=== PATIENT | male | born 1980 | race Caucasian/White ===

== ENCOUNTER 2020-04-26 09:15 | Outpatient (CLI) | payer OTHER, SELFPAY ==
[2020-04-26 09:29] LABS: Basophils Absolute Auto 0.1 K/mm3 (0.0-0.1); Basophils Percent Auto 0.6 % (0.2-1.2); Eosinophils Absolute Auto 0.4 K/mm3 (0-0.3); Eosinophils Percent Auto 4.4 % (0-4.4); Hematocrit 44.5 % (42.0-52.0); Hemoglobin 15.6 g/dL (14.0-18.0); Immature Granulocyte Absolute 0.03 K/mm3 (0.00-0.031); Immature Granulocyte Percent A 0.3 % (0-0.5); Lymphocytes Absolute Auto 1.46 K/mm3 (0.9-3.2); Lymphocytes Percent Auto 16.9 % (18.3-44.2); Mean Corpuscular HGB Conc 35.1 g/dl (32-36); Mean Corpuscular Hemoglobin 35.6 pg (26-34); Mean Corpuscular Volume 101.6 fl (80-100); Mean Platelet Volume 9.4 fl (7.4-10.4); Monocytes Absolute Auto 0.9 K/mm3 (0.1-0.6); Monocytes Percent Auto 10.7 % (2.6-8.5); Neutrophils Absolute Auto 5.8 K/mm3 (1.3-6.7); Neutrophils Percent Auto 67.1 % (45.5-73.1); Platelet Count Result 159 k/mm3 (150-375); Red Blood Count 4.38 M/mm3 (4.6-6.20); Red Cell Distribution Width 11.3 % (11.5-14.5); White Blood Count 8.7 K/mm3 (4.5-10.0)
[2020-04-30 10:41] LABS: Vitamin D 1,25 (OH)2 Total 71 pg/mL (18-72); Vitamin D2 1,25 (OH)2 <8 pg/mL; Vitamin D3 1,25 (OH)2 71 pg/mL
== END 2020-04-26 09:16 | disposition home or self-care (01) ==
PROVIDERS: PCP Emergency Medicine; Visit Provider Emergency Medicine
DX: Z03.818 Encounter for observation for suspected exposure to other biological agents ruled out (principal); D55.9 Anemia due to enzyme disorder, unspecified; F41.9 Anxiety disorder, unspecified; F32.9 Major depressive disorder, single episode, unspecified; R06.9 Unspecified abnormalities of breathing
CPT/HCPCS: 36415; 82652; 84443; 85025

== ENCOUNTER 2021-12-23 07:16 | Outpatient (CLI) | payer OTHER, SELFPAY ==
[2021-12-23 07:51] LABS: Basophils Absolute Auto 0.1 K/mm3 (0.0-0.1); Basophils Percent Auto 1.1 % (0.2-1.2); Eosinophils Absolute Auto 0.1 K/mm3 (0-0.3); Eosinophils Percent Auto 1.3 % (0-4.4); Hematocrit 42.3 % (42.0-52.0); Hemoglobin 14.8 g/dL (14.0-18.0); Immature Granulocyte Absolute 0.02 K/mm3 (0.00-0.031); Immature Granulocyte Percent A 0.4 % (0-0.5); Lymphocytes Absolute Auto 1.32 K/mm3 (0.9-3.2); Mean Corpuscular Hemoglobin 35.8 pg (26-34); Mean Corpuscular Volume 102.4 fl (80-100); Mean Platelet Volume 10.5 fl (7.4-10.4); Monocytes Absolute Auto 0.8 K/mm3 (0.1-0.6); Monocytes Percent Auto 13.7 % (2.6-8.5); Neutrophils Absolute Auto 3.3 K/mm3 (1.3-6.7); Neutrophils Percent Auto 59.5 % (45.5-73.1); Platelet Count Result 66 k/mm3 (150-375); Red Blood Count 4.13 M/mm3 (4.6-6.20); Red Cell Distribution Width 11.7 % (11.5-14.5); White Blood Count 5.5 K/mm3 (4.5-10.0)
[2021-12-23 08:08] LABS: Alanine Aminotransferase 117 U/L (6-50); Albumin Level 4.7 g/dL (3.5-5.1); Alkaline Phosphatase 145 U/L (38-126); Anion Gap 12 mmol/L (8-16); Aspartate Amino Transferase 258 U/L (17-59); Bilirubin,Total 2.7 mg/dL (0.2-1.3); Blood Urea Nitrogen 13 mg/dL (9-20); CRP 0.7 mg/dL (<1.0); Calcium 10.2 mg/dL (8.4-10.2); Carbon Dioxide 31 mmol/L (22-30); Chloride 102 mmol/L (98-107); Creatine Kinase 169 U/L (55-170); Estimated Glomerular Filt Rate > 60; Glucose 95 mg/dL (65-110); Lipase 145 U/L (23-300); Potassium 3.6 mmol/L (3.4-5.0); Sodium 145 mmol/L (137-145); Triglycerides 109 mg/dL (<150)
[2021-12-23 08:12] LABS: LDL Cholesterol Direct 106 mg/dL
[2021-12-23 09:34] LABS: Cholesterol 358 mg/dL (0-200); HDL Direct 175 mg/dL
== END 2021-12-23 07:17 | disposition home or self-care (01) ==
LOC: ANHLAB 07:18
PROVIDERS: PCP Emergency Medicine; Visit Provider Emergency Medicine
DX: E78.5 Hyperlipidemia, unspecified (principal); R53.83 Other fatigue; R63.4 Abnormal weight loss; Z13.6 Encounter for screening for cardiovascular disorders
CPT/HCPCS: 36415; 80053; 80061; 82550; 83690; 84443; 85025; 85055; 86140

== ENCOUNTER 2021-12-26 20:19 | Inpatient (IN) | payer OTHER, SELFPAY ==
[2021-12-26] VITALS (9 sets, daily range): BP systolic 98–144; BP diastolic 69–104; PULSE 90–103; RESP 12–21; TEMP 36.1; O2SAT 94–97
--- NOTE | ~2021-12-26 | XR_ITS ---
EXAMINATION: XR chest 1V portable Exam Date/Time: 12/27/2021 20:42 CDT HISTORY: fever Comparison: None available. RESULT: Lines, tubes, and devices: None. Lungs and pleura: Clear. Cardiomediastinal silhouette: Normal cardiomediastinal silhouette. Other: No acute osseous or upper abdominal finding. IMPRESSION: No acute cardiopulmonary process. Reviewed, dictated and finalized at location K.
--- NOTE | ~2021-12-26 | CT_ITS ---
EXAMINATION: CT cervical spine wo con DATE: 12/26/2021 21:25 INDICATION: Head injury. Fall. TECHNIQUE: Computed tomography (CT) of the cervical spine was performed without intravenous contrast. Automated exposure control and iterative reconstruction technique were employed. The dose-length pro duct was 498.77 mGy-cm. COMPARISON: None FINDINGS: There is 5 degrees levocurvature of cervical spine.. Vertebral body heights and interverteb ral disc heights are normal. There is multilevel facet joint osteoarthritis, moderate on the right at C7-T1. No neural foraminal stenosis or central canal stenosis. IMPRESSION: 1. No fracture. Reviewed, dictated and finalized at location A. IMPRESSION: 1. No fracture.
--- NOTE | ~2021-12-26 | CT_ITS ---
EXAMINATION: CT brain wo con DATE: 12/26/2021 21:24 INDICATION: Loss of balance. Fall. Confusion. TECHNIQUE: Computed tomography (CT) of the head was performed without intravenous contrast. The mA wa s adjusted according to patient size. Iterative reconstruction technique was employed. The dose-lengt h product was 605.33 mGy-cm. COMPARISON: None FINDINGS: There is a 2.5 x 4.6 x 4.5 cm arachnoid cyst anterior to right temporal lobe. There is no i ntracranial hemorrhage, acute infarction, or abnormal intracranial mass lesion. The ventricles are no rmal in size. There is mild mucosal thickening in the paranasal sinuses. The mastoid air cells are no rmal. The orbits are normal. IMPRESSION: 1. Arachnoid cyst anterior to right temporal lobe. Reviewed, dictated and finalized at location A.
--- NOTE | ~2021-12-26 | US_ITS ---
EXAMINATION: US abdomen limited DATE: 12/27/2021 08:48 INDICATION: Abnormal liver function tests TECHNIQUE: Multiple grayscale and Doppler ultrasound images of the abdomen were obtained. COMPARISON: None FINDINGS: The pancreatic head and body are normal in appearance. The pancreatic tail is not visualized. The vi sualized proximal inferior vena cava is normal. Liver has normal contour, with a smooth surface. Ther e is increased parenchymal echogenicity and coarsened echotexture consistent with diffuse hepatic juan atosis. No liver lesion identified. No intrahepatic biliary duct dilation suspected. Portal venous f low was seen in the hepatopetal, normal direction and has normal Doppler waveform. The gallbladder is normal in appearance. There is no cholelithiasis. The common bile duct measures 2 mm and 3 mm, whic h is normal. Sonographic Granda sign was reported as negative by the laboratory scientist. The visualized port ions of the right kidney demonstrates normal contour and echogenicity with no hydronephrosis. IMPRESSION: 1. Diffuse hepatic steatosis. Otherwise unremarkable right upper quadrant ultrasound. Reviewed, dictated and finalized at location A. IMPRESSION: 1. Diffuse hepatic steatosis. Otherwise unremarkable right upper quadrant ultra sound.
[2021-12-26 20:52] LABS: Basophils Absolute Auto 0.1 K/mm3 (0.0-0.1); Basophils Percent Auto 1.3 % (0.2-1.2); Eosinophils Absolute Auto 0.1 K/mm3 (0-0.3); Hematocrit 42.6 % (42.0-52.0); Hemoglobin 14.6 g/dL (14.0-18.0); Immature Granulocyte Absolute 0.02 K/mm3 (0.00-0.031); Immature Granulocyte Percent A 0.3 % (0-0.5); Immature Platelet Fraction Pct 6.5 % (0.9-11.2); Lymphocytes Percent Auto 27.4 % (18.3-44.2); Mean Corpuscular HGB Conc 34.3 g/dl (32-36); Mean Corpuscular Hemoglobin 35.1 pg (26-34); Mean Corpuscular Volume 102.4 fl (80-100); Mean Platelet Volume 9.9 fl (7.4-10.4); Monocytes Absolute Auto 0.8 K/mm3 (0.1-0.6); Neutrophils Absolute Auto 3.5 K/mm3 (1.3-6.7); Platelet Count Result 76 k/mm3 (150-375); Red Blood Count 4.16 M/mm3 (4.6-6.20); Red Cell Distribution Width 11.9 % (11.5-14.5); White Blood Count 6.2 K/mm3 (4.5-10.0)
[2021-12-26 21:01] LABS: Alanine Aminotransferase 113 U/L (6-50); Albumin Level 4.6 g/dL (3.5-5.1); Alkaline Phosphatase 136 U/L (38-126); Anion Gap 15 mmol/L (8-16); Aspartate Amino Transferase 247 U/L (17-59); Blood Urea Nitrogen 9 mg/dL (9-20); Calcium 9.6 mg/dL (8.4-10.2); Carbon Dioxide 32 mmol/L (22-30); Chloride 103 mmol/L (98-107); Estimated CRCL calculation 139 ml/min; Estimated Glomerular Filt Rate > 60; Glucose 107 mg/dL (65-110); INR 1.2; Potassium 3.7 mmol/L (3.4-5.0); Prothrombin Time 14.6 Seconds (11.1-14.7); Sodium 150 mmol/L (137-145)
[2021-12-26 21:02] LABS: Partial Thromboplastin Time 30.3 SECONDS (22.3-36.8)
--- NOTE | 2021-12-26 21:10 | ED.GENADULT ---
HPI - General Adult General Chief complaint: Fall <TIFFANY Fowler Last Filed: 12/27/21 02:44> Stated complaint: altered mental status, fall, weight loss <TIFFANY Fowler Last Filed: 12/27/21 02:44> Time Seen by Provider: 12/26/21 20:45 <TIFFANY Fowler Last Filed: 12/27/21 02:44> Source: patient and family <TIFFANY Fowler Last Filed: 12/27/21 02:44> Mode of arrival: ambulatory <TIFFANY Fowler Last Filed: 12/27/21 02:44> Limitations: clinical condition <TIFFANY Fowler Last Filed: 12/27/21 02:44> History of Present Illness HPI narrative: Patient is a 41-year-old male who presents the ED with report of confusion. Patient's at bedside assisted in providing information. Patient states he does not know why he is here. reports an unintentional 70 pound weight loss over the past year. She states patient just does not have an appetite. Patient does admit that it is easy for him to go 3 to 4 days without eating or drinking anything. He states he just has no desire to put anything in his system. reports intermittent confusion for the past 6 months, worsening significantly over to a daily basis over the past 2 weeks. She states he has been saying off the wall things and asking questions that do not make sense for this scenario. Patient denies feeling confused. Denies any focal weakness. He does report having pain from his knees down occasionally. reports that he sometimes sits on the couch and cries due to the pain. also reports he has been falling frequently lately. He fell tonight. She is unsure if he hit his head or loss consciousness. Patient does not report remembering falling. He denies any headache, abdominal pain, back pain, chest pain, difficulty breathing, recent fever, chills, night sweats, nausea, vomiting, cough, cold sx's. <TIFFANY Fowler Last Filed: 12/27/21 02:44> Related Data Allergies/adverse reactions: Allergies Allergy/AdvReac Type Severity Reaction Status Date / Time No Known Allergies Allergy Verified 12/27/21 01:57 <Luzma Interiano PA-C - Last Filed: 12/27/21 02:44> Review of Systems Review of Systems: CONSTITUTIONAL: Reports weight loss, anorexia. Denies fever, chills, or sweats. EYES: Denies visual changes. ENT: Denies rhinorrhea, congestion. CARDIOVASCULAR: Denies chest pain. RESPIRATORY: Denies cough or dyspnea. GASTROINTESTINAL: Denies abdominal pain, nausea, vomiting, or diarrhea. GENITOURINARY: Denies dysuria or hematuria. MUSCULOSKELETAL: Reports pain in BLE. Denies back pain. NEUROLOGIC: Reports confusion, unsure HI/LOC. Denies headache, numbness, or focal weakness. <Luzma Interiano PA-C - Last Filed: 12/27/21 02:44> All systems reviewed & are unremarkable except as noted in HPI and below <Luzma Interiano PA-C - Last Filed: 12/27/21 02:44> PMFSH Past Medical History Medical History: Medical History Anxiety Depression <Luzma Interiano PA-C - Last Filed: 12/27/21 02:44> Surgical History Surgical History: Surgical History No pertinent past surgical history <Luzma Interiano PA-C - Last Filed: 12/27/21 02:44> Family History Family History: Family History Father Hypertension <Luzma Interiano PA-C - Last Filed: 12/27/21 02:44> Social History Social History: Social History Smoking status: Never smoker Alcohol intake: current Drinks per week: 6 Substance use: never Spiritual care concerns: No <Luzma Interiano PA-C - Last Filed: 12/27/21 02:44> Exam Narrative: GENERAL: Well appearing, well-nourished, non-toxic, in no acute distress. HEAD: Normocephalic, atraumatic. EYES: PERRL/EOMI, conjunctivae clear bilaterally.
[2021-12-26 21:57] LABS: Add Urine Microscopic? NO; Appearance Urine Clear (Clear); Bilirubin Urine Negative (Negative); Blood Urine Negative (Negative); Color Urine Yellow (Yellow); Glucose Urine UA Negative (Negative); Ketones Urine Negative (Negative); Leukocyte Esterase Ur Negative LEU/UL (Negative); Nitrate Urine Negative (Negative); Protein Urine Negative (Negative)
[2021-12-26 22:53] LABS: Ammonia 65 umol/L (9-30)
[2021-12-26 23:03] LABS: Ethanol 494 mg/dL (<10)
[2021-12-26 23:05] LABS: Amphetamine Screen Urine Negative (Negative); Barbiturate Screen Urine Negative (Negative); Benzodiazepines Screen Urine Negative (Negative); Cannabinoid Screen Urine Negative (Negative); Cocaine Screen Urine Negative (Negative); Methadone Screen Urine Negative (Negative); Opiate Screen Urine Negative (Negative); Phencyclidine Screen Urine Negative (Negative)
[2021-12-26] MEDS: SODIUM CHLORIDE 0.9% IV 1,000 ML 999 ML IV CONT (23:31)
[2021-12-26 23:32] LABS: INR 1.2
[2021-12-26 23:33] LABS: Partial Thromboplastin Time 30.7 SECONDS (22.3-36.8)
[2021-12-26 23:35] LABS: Lactic Acid Reflex 1.6 mmol/L (0.7-2.0); Magnesium 1.4 mg/dL (1.6-2.3); Phosphorus 4.1 mg/dL (2.5-4.5)
[2021-12-26 23:58] LABS: Lipase 211 U/L (23-300)
[2021-12-27] VITALS (13 sets, daily range): BP systolic 120–153; BP diastolic 82–93; PULSE 69–94; RESP 15–18; TEMP 36.9–38.1; O2SAT 90–100; BMI 25.9
[2021-12-27] MEDS: THIAMINE HCL INJ 100 MG, FOLIC ACID INJ 1 MG, MULTIVITAMINS-12 INJ VIAL 1 5 ML, MULTIVI... IV CONT (00:01)
--- NOTE | 2021-12-27 01:08 | PM.IMHP ---
H&P: HPI History of Present Illness Date/Time: 12/27/21 01:08 Chief Complaint: Altered mental status. Narrative: This is a 41-year-old male the presents to the emergency room for evaluation of worsening confusion, unintentional weight loss, poor appetite, recurrent fall. Patient is brought to the emergency room by his he is able to give a history however patient is confused he is oriented to person and place however not to situation or time. When asked what time it was patient stated was morning. Upon further investigation was found the patient had an alcohol level in the 400s, ammonia level of 65, sodium 150, magnesium 1.4, MCV 112. Patient denies any discomfort at the time of my visit. is eating history taking. And she is sitting at bedside. Patient denies any fevers, rigors, chills, although states that he is feeling cold, no cough, no sputum production, no shortness of breath, no chest pain, patient has not been able to sleep at nighttime. Patient has been admitted for further evaluation management and treatment. Review of Systems Review of Systems: Patient brought to emergency room by due to confusion, recurrent falls, poor appetite. ROS unobtainable: Yes unobtainable due to mental status (Delirium, confusion.) [facility] Past Medical History Medical History Anxiety Depression Surgical History Surgical History No pertinent past surgical history Family History Family History Father Hypertension Social History Social History Smoking status: Never smoker Alcohol intake: current Drinks per week: 6 Substance use: never Spiritual care concerns: No Meds Home Medications and Allergies Allergies Allergy/AdvReac Type Severity Reaction Status Date / Time No Known Allergies Allergy Verified 12/27/21 01:57 Vital Signs Vital Signs - 24 hr 12/26/21 20:26 12/26/21 21:12 12/26/21 21:13 Temperature 97.0 F L Pulse Rate 92 100 103 H Respiratory Rate 14 16 16 Blood Pressure 139/90 144/104 H 140/101 H Pulse Oximetry 97 97 97 05/20/22 21:28 12/26/21 21:31 12/26/21 22:16 Temperature Pulse Rate 92 93 95 Respiratory Rate 12 21 H 13 Blood Pressure 136/92 H 129/88 124/102 H Pulse Oximetry 94 95 94 12/26/21 22:31 12/26/21 22:46 12/26/21 23:31 Temperature Pulse Rate 90 96 98 Respiratory Rate 15 15 18 Blood Pressure 120/87 98/69 L 126/95 H Pulse Oximetry 94 94 95 12/27/21 00:01 Temperature Pulse Rate 86 Respiratory Rate 18 Blood Pressure 127/85 Pulse Oximetry 90 Exam Narrative: Laying in a stretcher Const: General: cooperative, comfortable, no acute distress, well developed, alert, awake and other (Well-appearing) Nutritional Appearance: thin Orientation/consciousness: oriented to person and oriented to place HENMT: Head: normal to inspection, normocephalic and atraumatic Ears: hearing grossly normal bilaterally Face and sinus: normal facial exam Eyes: General: appearance normal, both eyes and all related structures Pupils: Equal, round and reactive pupils present EOM: EOMs intact bilaterally Neck: Neck: full ROM, no lymphadenopathy and no JVD Thyroid: thyroid normal Lymphatic: no lymphadenopathy noted Resp: Effort & Inspection: normal respiratory effort and able to speak in complete sentences Auscultation: clear to auscultation bilaterally Cardio: Jugular venous distension: no JVD Rate: regular rate Rhythm: regular rhythm Heart sounds: S1 normal heart sound present and S2 normal heart sound present GI: GI Palp: Yes Soft to palpation and Yes No hepatosplenomegaly present : General: Yes deferred Skin: Rashes: no rashes Wounds: no wounds Neuro: General: patient oriented x3 and CN's II-XI intact bilaterally Cranial nerves: Yes CN's II-
--- NOTE | 2021-12-27 01:56 | ADMGEN ---
This patient, Martin Early, was admitted to Medical Room 347-. Patient/family oriented to hospital policies and general routines including ID bracelet, bed and alarms, visiting hours, pain management, procedures, bathroom and other care routines, personal items, smoking policy, room service/diet, and visiting hours. Information on how to activate the Rapid Response Team has been discussed. Patient/Family are encouraged to report perceived risks to care and to ask questions if they do not understand what they are told or what they should do.
--- NOTE | 2021-12-27 02:22 | PC.NURSE ---
Pt brought to room from ED with multivitamin drip infusing @ 100 ml/hr.
[2021-12-27 05:58] LABS: Basophils Absolute Auto 0.1 K/mm3 (0.0-0.1); Basophils Percent Auto 1.3 % (0.2-1.2); Eosinophils Percent Auto 0.8 % (0-4.4); Hematocrit 36.8 % (42.0-52.0); Hemoglobin 12.6 g/dL (14.0-18.0); Immature Granulocyte Absolute 0.02 K/mm3 (0.00-0.031); Immature Granulocyte Percent A 0.5 % (0-0.5); Immature Platelet Fraction Pct 5.7 % (0.9-11.2); Lymphocytes Absolute Auto 0.83 K/mm3 (0.9-3.2); Lymphocytes Percent Auto 22.3 % (18.3-44.2); Mean Corpuscular HGB Conc 34.2 g/dl (32-36); Mean Corpuscular Hemoglobin 35.4 pg (26-34); Mean Corpuscular Volume 103.4 fl (80-100); Mean Platelet Volume 10.3 fl (7.4-10.4); Monocytes Absolute Auto 0.5 K/mm3 (0.1-0.6); Monocytes Percent Auto 13.4 % (2.6-8.5); Neutrophils Absolute Auto 2.3 K/mm3 (1.3-6.7); Neutrophils Percent Auto 61.7 % (45.5-73.1); Platelet Count Result 44 k/mm3 (150-375); Red Blood Count 3.56 M/mm3 (4.6-6.20); Red Cell Distribution Width 11.7 % (11.5-14.5); White Blood Count 3.7 K/mm3 (4.5-10.0)
[2021-12-27 06:01] LABS: Alanine Aminotransferase 91 U/L (6-50); Albumin Level 3.9 g/dL (3.5-5.1); Alkaline Phosphatase 110 U/L (38-126); Anion Gap 9 mmol/L (8-16); Aspartate Amino Transferase 203 U/L (17-59); Bilirubin,Total 1.9 mg/dL (0.2-1.3); Blood Urea Nitrogen 7 mg/dL (9-20); Calcium 8.4 mg/dL (8.4-10.2); Carbon Dioxide 30 mmol/L (22-30); Chloride 109 mmol/L (98-107); Estimated CRCL calculation 160 ml/min; Estimated Glomerular Filt Rate > 60; Glucose 97 mg/dL (65-110); Magnesium 1.4 mg/dL (1.6-2.3); Phosphorus 3.5 mg/dL (2.5-4.5); Potassium 3.4 mmol/L (3.4-5.0); Sodium 148 mmol/L (137-145)
[2021-12-27] MEDS: MAGNESIUM SULF 2 GM/WATER 50ML 2 GM/50 ML BAG IVPB (09:30)
[2021-12-27] MEDS: LACTULOSE 20 GM/30 ML UDC PO (09:30)
--- NOTE | 2021-12-27 13:51 | PM.IMPN ---
Progress Note: A&P Assessment and Plan (1) Altered mental status: Qualifiers: Altered mental status type: unspecified Qualified Code(s): R41.82 - Altered mental status, unspecified Code(s): R41.82 - Altered mental status, unspecified Status: Acute Assessment and Plan: Likely secondary to acute alcohol intoxication level in the 400 Contributing to it a sodium of 150 CT of the head reviewed with arachnoid cyst anterior to right temporal lobe Continue to monitor Continue IV fluids Supportive care Likely due to alcohol intoxication and/or hepatic encephalopathy (2) Increased ammonia level: Code(s): R79.89 - Other specified abnormal findings of blood chemistry Status: Acute Assessment and Plan: Lactulose Continue to monitor Recheck in a.m. (3) Alcohol dependence with acute intoxication, continuous: Code(s): F10.229 - Alcohol dependence with intoxication, unspecified Status: Acute Assessment and Plan: [facility] protocol as needed Supportive care (4) Fall: Code(s): W19.XXXA - Unspecified fall, initial encounter Status: Acute Assessment and Plan: For precautions CT head and neck negative for fractures Has hematoma/bruising on left forearm (5) Hypernatremia: Code(s): E87.0 - Hyperosmolality and hypernatremia Status: Acute Assessment and Plan: Receiving banana bag Repeat sodium improving Continue to monitor Likely secondary to patient not drinking free water and on top of that having diuresis due to alcohol consumption (6) Acute alcoholic hepatitis: Code(s): K70.10 - Alcoholic hepatitis without ascites Status: Acute Assessment and Plan: Right upper quadrant ultrasound With hepatic steatosis Check hepatitis profile (7) Megaloblastic anemia due to alcoholism: Code(s): D53.1 - Other megaloblastic anemias, not elsewhere classified Status: Acute Assessment and Plan: Continue to monitor (8) Weight loss, non-intentional: Code(s): R63.4 - Abnormal weight loss Status: Acute Assessment and Plan: Poor oral intake Regular diet (9) Thrombocytopenia, unspecified: Code(s): D69.6 - Thrombocytopenia, unspecified Status: Acute Assessment and Plan: Likely secondary to hepatic steatosis and alcohol consumption Continue to monitor Is scheduled to see Dr. Mcbride this well (10) Alcoholic dependence syndrome: Code(s): F10.20 - Alcohol dependence, uncomplicated Status: Acute Assessment and Plan: [facility] (11) Alcohol withdrawal: Code(s): F10.239 - Alcohol dependence with withdrawal, unspecified Status: Acute Assessment and Plan: He is on mild alcohol withdrawal symptoms. Will start scheduled Librium and CIWA protocol Subjective Date/time seen: 12/27/21 13:51 Interval history: HPI:This is a 41-year-old male the presents to the emergency room for evaluation of worsening confusion, unintentional weight loss, poor appetite, recurrent fall. Patient is brought to the emergency room by his he is able to give a history however patient is confused he is oriented to person and place however not to situation or time. When asked what time it was patient stated was morning. Upon further investigation was found the patient had an alcohol level in the 400s, ammonia level of 65, sodium 150, magnesium 1.4, MCV 112. Patient denies any discomfort at the time of my visit. is eating history taking. And she is sitting at bedside. Patient denies any fevers, rigors, chills, although states that he is feeling cold, no cough, no sputum production, no shortness of breath, no chest pain, patient has not been able to sleep at nighttime. Patient has been admitted for further evaluation management and treatment. 12/27/2021 improvement a marion today. at bedside
[2021-12-27 14:50] LABS: Acetaminophen < 10 ug/mL (10-30); Salicylate < 1.0 mg/dL (2-20)
[2021-12-27 15:22] LABS: Hepatitis B Surface Antigen Negative (Negative)
[2021-12-27 15:28] LABS: HAV RESULT Negative (Negative); Hepatitis B Core IgM Result Negative (Negative)
[2021-12-27 15:34] LABS: HIV 1/2 Ab P24 Ag Result Negative (Negative)
[2021-12-27 15:40] LABS: Hepatitis C Virus Antibody Negative (Negative)
[2021-12-27] MEDS: chlordiazePOXIDE (*CRX) 25 MG CAPSULE PO ×2 (16:51→21:03)
[2021-12-27] MEDS: LORazepam INJ (*CRX) 2 MG/ML VIAL 1 MG IV PUSH ×2 (18:04→22:17)
[2021-12-27 21:32] LABS: CRP 0.5 mg/dL (<1.0)
[2021-12-27 22:32] LABS: Appearance Urine Clear (Clear); Bilirubin Urine 1+ (Negative); Color Urine Yellow (Yellow); Glucose Urine UA Negative (Negative); Ketones Urine Trace mg/dL (Negative); Leukocyte Esterase Ur Negative LEU/UL (Negative); Nitrate Urine Negative (Negative); Protein Urine Negative (Negative); Specific Grav Ur 1.015 (1.001-1.035); Urobilinogen Urine >=8.0 mg/dL (<2.0); pH Urine 8.5 (5.0-9.0)
[2021-12-27 22:36] LABS: Bacteria Urine Trace /hpf; Mucus Urine Rare /lpf; Squamous Epithelial Cell Urine Rare /hpf (Few); WBC Urine 0-3 /hpf
[2021-12-27 22:53] LABS: Add Urine Microscopic? YES; Blood Urine Trace (Negative)
[2021-12-28] VITALS (8 sets, daily range): BP systolic 133–149; BP diastolic 87–98; PULSE 59–99; RESP 16–18; TEMP 36.6–37.2; O2SAT 99–100
[2021-12-28] MEDS: chlordiazePOXIDE (*CRX) 25 MG CAPSULE PO ×3 (05:28→21:11)
[2021-12-28 06:15] LABS: Basophils Percent Auto 0.9 % (0.2-1.2); Eosinophils Percent Auto 0.7 % (0-4.4); Hematocrit 37.2 % (42.0-52.0); Hemoglobin 12.8 g/dL (14.0-18.0); Immature Granulocyte Absolute 0.03 K/mm3 (0.00-0.031); Immature Granulocyte Percent A 0.7 % (0-0.5); Immature Platelet Fraction Pct 7.9 % (0.9-11.2); Lymphocytes Absolute Auto 0.66 K/mm3 (0.9-3.2); Lymphocytes Percent Auto 15.5 % (18.3-44.2); Mean Corpuscular HGB Conc 34.4 g/dl (32-36); Mean Corpuscular Hemoglobin 35.5 pg (26-34); Mean Platelet Volume 10.5 fl (7.4-10.4); Monocytes Absolute Auto 0.7 K/mm3 (0.1-0.6); Monocytes Percent Auto 15.3 % (2.6-8.5); Neutrophils Absolute Auto 2.8 K/mm3 (1.3-6.7); Neutrophils Percent Auto 66.9 % (45.5-73.1); Platelet Count Result 41 k/mm3 (150-375); Red Blood Count 3.61 M/mm3 (4.6-6.20); Red Cell Distribution Width 11.4 % (11.5-14.5); White Blood Count 4.3 K/mm3 (4.5-10.0)
[2021-12-28 06:18] LABS: Ammonia 18 umol/L (9-30)
[2021-12-28 06:19] LABS: Alanine Aminotransferase 84 U/L (6-50); Albumin Level 4.2 g/dL (3.5-5.1); Alkaline Phosphatase 122 U/L (38-126); Anion Gap 7 mmol/L (8-16); Aspartate Amino Transferase 184 U/L (17-59); Bilirubin,Total 3.5 mg/dL (0.2-1.3); Blood Urea Nitrogen 9 mg/dL (9-20); Calcium 8.3 mg/dL (8.4-10.2); Carbon Dioxide 27 mmol/L (22-30); Chloride 99 mmol/L (98-107); Estimated CRCL calculation 189 ml/min; Estimated Glomerular Filt Rate > 60; Glucose 83 mg/dL (65-110); Potassium 3.3 mmol/L (3.4-5.0); Sodium 133 mmol/L (137-145)
[2021-12-28] MEDS: POTASSIUM CHLORIDE 20 MEQ TABLET 40 MEQ PO (09:12)
[2021-12-28] MEDS: LACTULOSE 20 GM/30 ML UDC PO (09:12)
[2021-12-28] MEDS: LORazepam INJ (*CRX) 2 MG/ML VIAL 1 MG IV PUSH ×3 (12:19→22:39)
--- NOTE | 2021-12-28 13:10 | PM.IMPN ---
Progress Note: A&P Assessment and Plan (1) Altered mental status: Qualifiers: Altered mental status type: unspecified Qualified Code(s): R41.82 - Altered mental status, unspecified Code(s): R41.82 - Altered mental status, unspecified Status: Acute Assessment and Plan: Likely secondary to acute alcohol intoxication level in the 400 Contributing to it a sodium of 150 CT of the head reviewed with arachnoid cyst anterior to right temporal lobe Continue to monitor Continue IV fluids Supportive care Likely due to alcohol intoxication and/or hepatic encephalopathy Ammonia level has normalized 12/28/21 (2) Increased ammonia level: Code(s): R79.89 - Other specified abnormal findings of blood chemistry Status: Acute Assessment and Plan: Lactulose Continue to monitor Recheck normal 12/28/2021 (3) Alcohol dependence with acute intoxication, continuous: Code(s): F10.229 - Alcohol dependence with intoxication, unspecified Status: Acute Assessment and Plan: [facility] protocol as needed Supportive care (4) Fall: Code(s): W19.XXXA - Unspecified fall, initial encounter Status: Acute Assessment and Plan: For precautions CT head and neck negative for fractures Has hematoma/bruising on left forearm (5) Hypernatremia: Code(s): E87.0 - Hyperosmolality and hypernatremia Status: Acute Assessment and Plan: Receiving banana bag Repeat sodium improving Continue to monitor Likely secondary to patient not drinking free water and on top of that having diuresis due to alcohol consumption (6) Acute alcoholic hepatitis: Code(s): K70.10 - Alcoholic hepatitis without ascites Status: Acute Assessment and Plan: Right upper quadrant ultrasound With hepatic steatosis Hepatitis profile negative (7) Megaloblastic anemia due to alcoholism: Code(s): D53.1 - Other megaloblastic anemias, not elsewhere classified Status: Acute Assessment and Plan: Continue to monitor (8) Weight loss, non-intentional: Code(s): R63.4 - Abnormal weight loss Status: Acute Assessment and Plan: Poor oral intake Regular diet (9) Thrombocytopenia, unspecified: Code(s): D69.6 - Thrombocytopenia, unspecified Status: Acute Assessment and Plan: Likely secondary to hepatic steatosis and alcohol consumption Continue to monitor Is scheduled to see Dr. Mcbride this well (10) Alcoholic dependence syndrome: Code(s): F10.20 - Alcohol dependence, uncomplicated Status: Acute Assessment and Plan: D[facility]ed [facility] (11) Alcohol withdrawal: Code(s): F10.239 - Alcohol dependence with withdrawal, unspecified Status: Acute Assessment and Plan: He is on mild alcohol withdrawal symptoms. Scheduled Librium and CIWA protocol. Still in withdrawal continue current medication and protocol Subjective Date/time seen: 12/28/21 13:10 Interval history: HPI:This is a 41-year-old male the presents to the emergency room for evaluation of worsening confusion, unintentional weight loss, poor appetite, recurrent fall. Patient is brought to the emergency room by his he is able to give a history however patient is confused he is oriented to person and place however not to situation or time. When asked what time it was patient stated was morning. Upon further investigation was found the patient had an alcohol level in the 400s, ammonia level of 65, sodium 150, magnesium 1.4, MCV 112. Patient denies any discomfort at the time of my visit. is eating history taking. And she is sitting at bedside. Patient denies any fevers, rigors, chills, although states that he is feeling cold, no cough, no sputum production, no shortness of breath, no chest pain, patient has not been able to sleep at nighttime. Patient has been admitted
--- NOTE | 2021-12-28 13:14 | WPDGICN ---
Assessment and Plan Assessment and plan (1) Alcohol withdrawal: Code(s): F10.239 - Alcohol dependence with withdrawal, unspecified Status: Acute Assessment and Plan: he was alert today and shows no signs of tremulousness. I think he is going to be stable. He firmly states that he is going to give up alcohol completely. I (2) Alcoholic dependence syndrome: Code(s): F10.20 - Alcohol dependence, uncomplicated Status: Acute Assessment and Plan: he states that he is going to give up alcohol completely. I did tell him that it is usually not possible to is simply cut back on alcohol when 1 has had a problem with dependency. He acknowledges that he needs to stop completely (3) Increased ammonia level: Code(s): R79.89 - Other specified abnormal findings of blood chemistry Status: Acute Assessment and Plan: Ammonia level has come down to 15. I do not think that he will need to be maintained on lactulose after discharge so long as he remains sober he will however need to follow-up with either myself or liver specialist (4) Altered mental status: Qualifiers: Altered mental status type: unspecified Qualified Code(s): R41.82 - Altered mental status, unspecified Code(s): R41.82 - Altered mental status, unspecified Status: Acute Assessment and Plan: this was likely due to alcohol intoxication but the elevated blood ammonia may have been contributing factor as well. He is lucid now and probably able to go home GI Consult Note Consult date/time: 12/28/21 13:14 HPI: Martin Early is a 41 year old male who was admitted 2 days ago, having been brought to the emergency room by his . He had been falling. At the time of admission he also was confused and thought it was morning when in fact was evening. Was found to have an alcohol level in the 400s. Blood ammonia level also was elevated 65. He admits to me that he has been drinking heavily. He states that that is how he deals with stress at work. He admits he probably has not been eating well in fact has had a poor appetite recently. He also has been losing some weight. He has never been told in the past that he had liver disease. He has never been hospitalized for alcohol-related problems such as withdrawal syndrome. There is no family history to his knowledge of liver disease. Review of Systems Review of Systems: All systems reviewed & are unremarkable except as noted in HPI and below PMFSH Past Medical History Medical History Anxiety Depression Surgical History Surgical History No pertinent past surgical history Family History Family History Father Hypertension Social History Social History Smoking status: Never smoker Alcohol intake: current Drinks per week: 6 Substance use: never Spiritual care concerns: No Meds Home Medications and Allergies Home Medications Medication Instructions Recorded Confirmed Type No Home Medications 12/27/21 12/27/21 History Allergies Allergy/AdvReac Type Severity Reaction Status Date / Time No Known Allergies Allergy Verified 12/27/21 01:57 Vital Signs Vital Signs - 24 hr 12/27/21 16:00 12/27/21 16:24 12/27/21 20:00 Temperature 37.1 C Pulse Rate 69 77 81 Pulse Rate [Left Radial Palpation] 74 Respiratory Rate 16 Blood Pressure 148/93 H Pulse Oximetry 100 12/27/21 20:05 12/27/21 22:22 12/28/21 00:00 Temperature 38.1 C H 37.4 C Pulse Rate 78 65 Pulse Rate [Left Radial Palpation] 65 Respiratory Rate 16 Blood Pressure 153/92 H Pulse Oximetry 98 12/28/21 04:00 12/28/21 05:26 12/28/21 08:00 Temperature 36.6 C Pulse Rate 59 L 60 92 Pulse Rate [Left Radial Palpation] 6
[2021-12-29] VITALS (29 sets, daily range): BP systolic 112–151; BP diastolic 87–114; PULSE 60–160; RESP 13–22; TEMP 36.1–37.5; O2SAT 94–100; BMI 25.9
[2021-12-29] MEDS: LORazepam INJ (*CRX) 2 MG/ML VIAL 1 MG IV PUSH (02:27)
--- NOTE | 2021-12-29 02:52 | PC.NURSE ---
0250 PT WILL NOT KEEP ASSOCIATE ACCOUNTANT ON. REPLACED ASSOCIATE ACCOUNTANT AND STICKERS MULTIPLE TIMES. PT IS RESTLESS AND PACING AROUND THE ROOM. CONTACTED DR GAUTHIER SHE STATED IT WAS FINE TO LEAVE MONIOTR OFF FOR NOW AND TO SPOT CHECK THE PT THE NIGHT GOES ON. I TOLD HER I WOULD REPLACE THE MONITOR AT 4AM TO GET A STRIP ON THE PT SHE WAS AGREEABLE .
--- NOTE | 2021-12-29 03:29 | PC.NURSE ---
WHILE ROUNDING I VIEWED PT THROUGH WINDOW ON THE FLOOR LOOKING INTO THE CABINET. REQUESTED ASSISTANCE OF FELLOW CLAUDIA HOLT TO ENTER THE ROOM. PT WAS STARTLED AND STATED HE WAS TRYING TO FIX SOMETHING IN THE CABINET. PT WAS DRENCHED WITH SWEAT AND UNSTEADY RISING FROM THE FLOOR. 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 PT WAS COOPERATIVE BUT CONFUSED. PT WAS ABLE TO ANSWER BASIC QUESTIONS LIKE WHERE HE WORKED BUT THEN STATED HIS MOTHER IN THE CABINET. PT IS ACTIVELY HALLUCINATING AND BECOMING INCREASINGLY RESTLESS. INFORMED THE PT THE IMPORTANCE TO STAYING IN THE BED DUE TO HIS UNSTEADY GAIT AND SET THE BED ALARM TO ZONE 1. PREVIOUSLY PT HAD BEEN ALLOWED TO MOVE INDEPENDENTLY THROUGHOUT THE ROOM. ANDREW CURRENTLY A 32.
[2021-12-29] MEDS: LORazepam INJ (*CRX) 2 MG/ML VIAL IV PUSH ×3 (04:43→09:44)
[2021-12-29] MEDS: HALOPERIDOL LACTATE 5 MG/ML VIAL IM (05:08)
[2021-12-29] MEDS: chlordiazePOXIDE (*CRX) 25 MG CAPSULE PO ×2 (05:47→08:06)
[2021-12-29 06:41] LABS: Basophils Percent Auto 0.5 % (0.2-1.2); Eosinophils Percent Auto 0.2 % (0-4.4); Hematocrit 38.8 % (42.0-52.0); Hemoglobin 13.5 g/dL (14.0-18.0); Immature Granulocyte Absolute 0.02 K/mm3 (0.00-0.031); Immature Granulocyte Percent A 0.3 % (0-0.5); Immature Platelet Fraction Pct 9.6 % (0.9-11.2); Lymphocytes Absolute Auto 0.62 K/mm3 (0.9-3.2); Lymphocytes Percent Auto 10.3 % (18.3-44.2); Mean Corpuscular HGB Conc 34.8 g/dl (32-36); Mean Corpuscular Hemoglobin 35.4 pg (26-34); Mean Corpuscular Volume 101.8 fl (80-100); Mean Platelet Volume 10.5 fl (7.4-10.4); Monocytes Absolute Auto 0.7 K/mm3 (0.1-0.6); Monocytes Percent Auto 11.8 % (2.6-8.5); Neutrophils Absolute Auto 4.6 K/mm3 (1.3-6.7); Neutrophils Percent Auto 76.9 % (45.5-73.1); Platelet Count Result 57 k/mm3 (150-375); Red Blood Count 3.81 M/mm3 (4.6-6.20); Red Cell Distribution Width 11.6 % (11.5-14.5)
[2021-12-29 06:52] LABS: Alanine Aminotransferase 85 U/L (6-50); Albumin Level 4.4 g/dL (3.5-5.1); Alkaline Phosphatase 148 U/L (38-126); Anion Gap 10 mmol/L (8-16); Aspartate Amino Transferase 162 U/L (17-59); Bilirubin,Total 3.8 mg/dL (0.2-1.3); Blood Urea Nitrogen 10 mg/dL (9-20); Calcium 8.8 mg/dL (8.4-10.2); Carbon Dioxide 25 mmol/L (22-30); Chloride 98 mmol/L (98-107); Estimated CRCL calculation 139 ml/min; Estimated Glomerular Filt Rate > 60; Glucose 101 mg/dL (65-110); Magnesium 1.2 mg/dL (1.6-2.3); Potassium 3.3 mmol/L (3.4-5.0); Sodium 133 mmol/L (137-145)
--- NOTE | 2021-12-29 09:10 | PM.IMPN ---
Progress Note: A&P Assessment and Plan (1) Altered mental status: Qualifiers: Altered mental status type: unspecified Qualified Code(s): R41.82 - Altered mental status, unspecified Code(s): R41.82 - Altered mental status, unspecified Status: Acute Assessment and Plan: Likely secondary to acute alcohol intoxication level in the 400 Contributing to it a sodium of 150 CT of the head reviewed with arachnoid cyst anterior to right temporal lobe Continue to monitor Continue IV fluids Supportive care Likely due to alcohol intoxication and/or hepatic encephalopathy Ammonia level has normalized 12/28/21 Worsened 12/29/2021 with alcoholic hallucinosis Discussed with ICU. Transferred to ICU for further treatment with Precedex drip (2) Increased ammonia level: Code(s): R79.89 - Other specified abnormal findings of blood chemistry Status: Acute Assessment and Plan: Lactulose Continue to monitor Recheck normal 12/28/2021 (3) Alcohol dependence with acute intoxication, continuous: Code(s): F10.229 - Alcohol dependence with intoxication, unspecified Status: Acute Assessment and Plan: [facility] protocol as needed Supportive care (4) Fall: Code(s): W19.XXXA - Unspecified fall, initial encounter Status: Acute Assessment and Plan: For precautions CT head and neck negative for fractures Has hematoma/bruising on left forearm (5) Hypernatremia: Code(s): E87.0 - Hyperosmolality and hypernatremia Status: Acute Assessment and Plan: Receiving banana bag Repeat sodium improving Continue to monitor Likely secondary to patient not drinking free water and on top of that having diuresis due to alcohol consumption (6) Acute alcoholic hepatitis: Code(s): K70.10 - Alcoholic hepatitis without ascites Status: Acute Assessment and Plan: Right upper quadrant ultrasound With hepatic steatosis Hepatitis profile negative (7) Megaloblastic anemia due to alcoholism: Code(s): D53.1 - Other megaloblastic anemias, not elsewhere classified Status: Acute Assessment and Plan: Continue to monitor (8) Weight loss, non-intentional: Code(s): R63.4 - Abnormal weight loss Status: Acute Assessment and Plan: Poor oral intake Regular diet (9) Thrombocytopenia, unspecified: Code(s): D69.6 - Thrombocytopenia, unspecified Status: Acute Assessment and Plan: Likely secondary to hepatic steatosis and alcohol consumption Continue to monitor Is scheduled to see Dr. Mcbride this well (10) Alcoholic dependence syndrome: Code(s): F10.20 - Alcohol dependence, uncomplicated Status: Acute Assessment and Plan: Discuss[facility] (11) Alcohol withdrawal: Code(s): F10.239 - Alcohol dependence with withdrawal, unspecified Status: Acute Assessment and Plan: on severe alcohol withdrawal with hallucinosis. transferred to ICU Subjective Date/time seen: 12/29/21 09:10 Interval history: HPI:This is a 41-year-old male the presents to the emergency room for evaluation of worsening confusion, unintentional weight loss, poor appetite, recurrent fall. Patient is brought to the emergency room by his he is able to give a history however patient is confused he is oriented to person and place however not to situation or time. When asked what time it was patient stated was morning. Upon further investigation was found the patient had an alcohol level in the 400s, ammonia level of 65, sodium 150, magnesium 1.4, MCV 112. Patient denies any discomfort at the time of my visit. is eating history taking. And she is sitting at bedside. Patient denies any fevers, rigors, chills, although states that he is feeling cold, no cough, no sputum production, no shortness of breath, no chest pain, patient has not be
--- NOTE | 2021-12-29 09:19 | PC.NURSE ---
Pt arrived to ICU 10 via bed. at bedside.
[2021-12-29] MEDS: dexmedeTOMIDine 400 MCG/100 ML 400 MCG/100 ML BAG 22.98 MCG IV CONT (09:37)
[2021-12-29] MEDS: MAGNESIUM SULF 2 GM/WATER 50ML 2 GM/50 ML BAG IVPB (09:38)
[2021-12-29] MEDS: LACTULOSE 20 GM/30 ML UDC PO (09:38)
[2021-12-29] MEDS: POTASSIUM CHLORIDE INJ 40 MEQ in SODIUM CHLORIDE 0.9% IV 500 ML 130 MEQ IVPB (10:11)
--- NOTE | 2021-12-29 10:43 | PCPTNOTE ---
Attempted physical therapy evaluation, Per RN, patient is resting comfortably at this time and to check back this afternoon. Will Follow.
--- NOTE | 2021-12-29 10:50 | PCOTNOTE ---
Attempted occupational therapy evaluation, Per RN, patient is resting comfortably at this time and to check back this afternoon. Will Follow.
[2021-12-29] MEDS: chlordiazePOXIDE (*CRX) 25 MG CAPSULE 50 MG PO ×3 (11:19→23:59)
--- NOTE | 2021-12-29 12:28 | PCOTNOTE ---
Per RN hold occupational therapy today due to patient being lethargic. Will follow.
--- NOTE | 2021-12-29 13:05 | PCPTNOTE ---
Per RN hold physical therapy today due to patient being lethargic. Will follow.
[2021-12-29] MEDS: dexmedeTOMIDine 400 MCG/100 ML 400 MCG/100 ML BAG 13.79 MCG IV CONT (13:29)
--- NOTE | 2021-12-29 13:47 | WPDGIPROGNO ---
Progress Note: A&P Assessment and Plan (1) Alcohol withdrawal: Code(s): F10.239 - Alcohol dependence with withdrawal, unspecified Status: Acute Assessment and Plan: 12/28 he was alert today and shows no signs of tremulousness. I think he is going to be stable. He firmly states that he is going to give up alcohol completely. I 12/29. He became confused last night and had to be transferred back to intensive care. He is now sedated perCIWA protocol and is sleeping calmly. (2) Alcoholic dependence syndrome: Code(s): F10.20 - Alcohol dependence, uncomplicated Status: Acute Assessment and Plan: he states that he is going to give up alcohol completely. I did tell him that it is usually not possible to is simply cut back on alcohol when 1 has had a problem with dependency. He acknowledges that he needs to stop completely (3) Increased ammonia level: Code(s): R79.89 - Other specified abnormal findings of blood chemistry Status: Acute Assessment and Plan: Ammonia level has come down to 15. I do not think that he will need to be maintained on lactulose after discharge so long as he remains sober he will however need to follow-up with either myself or liver specialist (4) Altered mental status: Qualifiers: Altered mental status type: unspecified Qualified Code(s): R41.82 - Altered mental status, unspecified Code(s): R41.82 - Altered mental status, unspecified Status: Acute Assessment and Plan: this was likely due to alcohol intoxication but the elevated blood ammonia may have been contributing factor as well. He is lucid now and probably able to go home Subjective Date/time seen: 12/29/21 13:47 Exam Const: General: other ( Sedated, sleeping) Resp: Auscultation: clear to auscultation bilaterally Cardio: Rhythm: regular rhythm GI: GI Palp: No abdominal tenderness and Yes No hepatosplenomegaly present Objective Data Vital Signs Vital Signs: Vital Signs - 24 hr 12/28/21 14:00 12/28/21 20:00 12/28/21 20:08 Temperature 37.2 C 37.1 C Pulse Rate 82 90 90 Pulse Rate [Left Radial Palpation] 62 Respiratory Rate 16 18 18 Blood Pressure 143/98 H 133/88 133/88 Pulse Oximetry 99 100 100 12/29/21 00:00 12/29/21 02:31 12/29/21 03:15 Temperature Pulse Rate 98 Pulse Rate [Left Radial Palpation] 62 160 H 121 H Respiratory Rate Blood Pressure 133/88 133/88 133/88 Pulse Oximetry 12/29/21 04:00 12/29/21 04:50 12/29/21 05:52 Temperature 37.0 C 36.7 C Pulse Rate 112 H 114 H 121 H Pulse Rate [Left Radial Palpation] 110 H Respiratory Rate 22 H 20 Blood Pressure 133/88 151/99 H 141/96 H Pulse Oximetry 100 97 12/29/21 06:12 12/29/21 09:37 12/29/21 09:46 Temperature Pulse Rate 118 H 113 H Pulse Rate [Left Radial Palpation] 110 H Respiratory Rate 15 18 Blood Pressure 141/96 H Pulse Oximetry 12/29/21 09:56 12/29/21 10:00 12/29/21 10:45 Temperature 37.4 C Pulse Rate 108 H 100 87 Pulse Rate [Left Radial Palpation] Respiratory Rate 22 H 19 21 H Blood Pressure 142/114 H Pulse Oximetry 97 12/29/21 11:00 12/29/21 11:15 12/29/21 12:00 Temperature 37.1 C Pulse Rate 86 83 77 Pulse Rate [Left Radial Palpation] 77 Respiratory Rate 20 21 H 15 Blood Pressure 125/87 Pulse Oximetry 96 12/29/21 12:53 12/29/21 13:29 Temperature Pulse Rate 73 69 Pulse Rate [Left Radial Palpation] Respiratory Rate 13 13 Blood Pressure Pulse Oximetry Intake/Output Intake/Output: Intake & Output 12/26/21 12/27/21 12/28/21 12/29/21 23:59 23:59 23:59 23:59 Intake Total 2863.2 970 100 Output Total 400 625 400 Balance 2463.2 345 -300 Meds/Results Medications: Active Medications Generic Name Dose Route Start Last Admin Trade Name Freq PRN Reason Stop Dose Admin Chlordiazepoxide HCl 50 mg 12/29/21 12:00 12/29/21 11:19 Chlordiazepoxide (*Crx) 25 Mg Capsule PO 50 mg
--- NOTE | 2021-12-29 14:18 | WPDCNINT ---
Assessment and Plan Assessment and plan (1) Alcohol withdrawal: Code(s): F10.239 - Alcohol dependence with withdrawal, unspecified Status: Acute Assessment and Plan: Patient presented with alcohol intoxication with alcohol levels of 494 on 12/27/2021 -patient on the floor was getting agitated, tremulous, hallucinations -CIWA score was elevated, despite giving multiple doses of Ativan patient was agitated and was trying to get out of bed -patient was transferred to the ICU on 12/29, started on Precedex infusion -will give additional IV fluid bolus and start him on maintenance IV fluids -continue monitor closely -will monitor for withdrawal seizures and DTs - sitter at bedside -continue Librium -will start IV thiamine and IV folic acid (2) Alcoholic dependence syndrome: Code(s): F10.20 - Alcohol dependence, uncomplicated Status: Acute Assessment and Plan: Patient with alcohol dependence, was to discuss with care coordination regarding options of placement in a rehab -have last care coordination to discuss options with family (3) Altered mental status: Qualifiers: Altered mental status type: unspecified Qualified Code(s): R41.82 - Altered mental status, unspecified Code(s): R41.82 - Altered mental status, unspecified Status: Acute Assessment and Plan: Altered mental status most likely related to alcohol intoxication on admission -currently (4) Elevated LFTs: Code(s): R79.89 - Other specified abnormal findings of blood chemistry Status: Acute Assessment and Plan: Elevated LFTs likely related to liver disease from alcohol use, hepatic steatosis seen on abdominal ultrasound -GI following -continue to monitor (5) Thrombocytopenia, unspecified: Code(s): D69.6 - Thrombocytopenia, unspecified Status: Acute Assessment and Plan: Thrombocytopenia likely related to alcohol abuse -no acute bleeding noted at this time -will continue to monitor -platelets counts trending up (6) Increased ammonia level: Code(s): R79.89 - Other specified abnormal findings of blood chemistry Status: Acute Assessment and Plan: Increased ammonia level likely related to hypovolemia, liver dysfunction from alcohol use -patient on lactulose, repeat ammonia levels are normal Additional Plan DVT prophylaxis: SCDs. No chemoprophylaxis due to thrombocytopenia Stress ulcer prophylaxis: Will add Protonix Nutrition: NPO for now Discussed with patient's and updated with patient's condition and plan of care. I did discuss with her regarding Precedex infusion. She wanted to talk to care coordination regarding rehab options, have connected the and care coordination. Code status: Full code Critical care time spent: 46 minutes This dictation may have been done utilizing a voice recognition system. Attempts have been made to correct errors. However, there may be uncorrected grammatical, spelling, and recognition errors present. Due to a high probability of clinically significant, life threatening deterioration, the patient required my highest level of preparedness to intervene emergently and I personally spent this critical care time directly and personally managing the patient. This critical care time included obtaining a history; examining the patient; pulse oximetry; ordering and review of studies; arranging urgent treatment with development of a management plan; evaluation of patient's response to treatment; frequent reassessment; and discussions with other providers. It was exclusive of separately billable procedures and treating other patients and teaching time. Please see Assessment and Plan section and the rest of the note for further information on patient assessment and treatment Extension Work Director Consult Note Consult date: 12/29/21 Time Seen: 09:33 Reason for consult: Alcohol withdrawal, altered mental status, hallucinations, agitation
[2021-12-29] MEDS: LACTATED RINGERS 1,000 ML 999 ML IV CONT (14:44)
[2021-12-29] MEDS: PANTOPRAZOLE SODIUM IV 40 MG VIAL IV PUSH (16:50)
[2021-12-29] MEDS: FOLIC ACID 1 MG/0.2 ML INJ IV PUSH (16:50)
[2021-12-29] MEDS: LACTATED RINGERS 1,000 ML 100 ML IV CONT (16:51)
[2021-12-29] MEDS: THIAMINE HCL 200 MG/2 ML VIAL 100 MG IV PUSH (16:51)
[2021-12-30] VITALS (13 sets, daily range): BP systolic 116–145; BP diastolic 75–95; PULSE 61–131; RESP 14–20; TEMP 36.6–38.4; O2SAT 94–100
[2021-12-30] MEDS: dexmedeTOMIDine 400 MCG/100 ML 400 MCG/100 ML BAG 6.89 MCG IV CONT (00:48)
--- NOTE | 2021-12-30 01:53 | PC.NURSE ---
Charge nurse sitting in room with patient due to need for hands on care. Pt becoming more agitated frequently trying to climb our of bed and talking multiple people to redirect. Dr Avila called due to increased restlessness and agitation. 5mg valium ordered and given IV push and Dr Mullen coming to reassess pt. With Dr Mullen pt is confused and continues to climb out of bed is challenging nursing reassurances of safety and care. Decision is made to intubate. 30mg atomidate given followed by 80mg rocuronium. Pt intubated at 0118. 16F OG placed and 16 maldivian Huang placed. Pt in restraints. Fentanyl and Versed ordered with order from Dr Mullen to start dripd at 150 and 4 respectively.
[2021-12-30] MEDS: LACTATED RINGERS 1,000 ML 100 ML IV CONT (02:38)
[2021-12-30 06:10] LABS: Ammonia 23 umol/L (9-30)
[2021-12-30 06:10] LABS: Alanine Aminotransferase 85 U/L (6-50); Albumin Level 3.8 g/dL (3.5-5.1); Alkaline Phosphatase 121 U/L (38-126); Anion Gap 9 mmol/L (8-16); Aspartate Amino Transferase 164 U/L (17-59); Bilirubin,Total 3.5 mg/dL (0.2-1.3); Blood Urea Nitrogen 8 mg/dL (9-20); Calcium 8.3 mg/dL (8.4-10.2); Carbon Dioxide 23 mmol/L (22-30); Chloride 106 mmol/L (98-107); Estimated CRCL calculation 189 ml/min; Estimated Glomerular Filt Rate > 60; Glucose 83 mg/dL (65-110); Lipase 91 U/L (23-300); Magnesium 1.4 mg/dL (1.6-2.3); Phosphorus 2.7 mg/dL (2.5-4.5); Potassium 3.5 mmol/L (3.4-5.0); Sodium 138 mmol/L (137-145)
[2021-12-30] MEDS: chlordiazePOXIDE (*CRX) 25 MG CAPSULE 50 MG PO ×4 (06:29→23:35)
[2021-12-30 07:18] LABS: INR 1.3; Partial Thromboplastin Time 30.3 SECONDS (22.3-36.8); Prothrombin Time 15.3 Seconds (11.1-14.7)
[2021-12-30 07:19] LABS: Basophils Percent Auto 0.8 % (0.2-1.2); Eosinophils Absolute Auto 0.1 K/mm3 (0-0.3); Hemoglobin 13.4 g/dL (14.0-18.0); Immature Granulocyte Absolute 0.03 K/mm3 (0.00-0.031); Immature Granulocyte Percent A 0.6 % (0-0.5); Lymphocytes Absolute Auto 0.69 K/mm3 (0.9-3.2); Lymphocytes Percent Auto 13.6 % (18.3-44.2); Mean Corpuscular HGB Conc 35.3 g/dl (32-36); Mean Corpuscular Hemoglobin 35.8 pg (26-34); Mean Corpuscular Volume 101.6 fl (80-100); Mean Platelet Volume 10.7 fl (7.4-10.4); Monocytes Absolute Auto 0.5 K/mm3 (0.1-0.6); Monocytes Percent Auto 10.6 % (2.6-8.5); Neutrophils Absolute Auto 3.7 K/mm3 (1.3-6.7); Neutrophils Percent Auto 72.4 % (45.5-73.1); Platelet Count Result 49 k/mm3 (150-375); Red Blood Count 3.74 M/mm3 (4.6-6.20); Red Cell Distribution Width 11.8 % (11.5-14.5); White Blood Count 5.1 K/mm3 (4.5-10.0)
--- NOTE | 2021-12-30 09:12 | WPDINTPN ---
Progress Note: A&P Assessment and Plan (1) Alcohol withdrawal: Code(s): F10.239 - Alcohol dependence with withdrawal, unspecified Status: Acute Assessment and Plan: Patient presented with alcohol intoxication with alcohol levels of 494 on 12/27/2021 -patient on the floor was getting agitated, tremulous, hallucinations -CIWA score was elevated, despite giving multiple doses of Ativan patient was agitated and was trying to get out of bed -patient was transferred to the ICU on 12/29, started on Precedex infusion -was also given IV fluids -symptoms are significantly improved and Precedex has been weaned off -continue scheduled Librium -continue Ativan IV and p.o. p.r.n.. Dosing adjusted based on CIWA score -change IV thiamine and IV folic acid to p.o. (2) Alcoholic dependence syndrome: Code(s): F10.20 - Alcohol dependence, uncomplicated Status: Acute Assessment and Plan: Patient with alcohol dependence, working with care coordination regarding options of placement in a rehab (3) Altered mental status: Qualifiers: Altered mental status type: unspecified Qualified Code(s): R41.82 - Altered mental status, unspecified Code(s): R41.82 - Altered mental status, unspecified Status: Acute Assessment and Plan: Altered mental status most likely related to alcohol intoxication on admission Resolved (4) Elevated LFTs: Code(s): R79.89 - Other specified abnormal findings of blood chemistry Status: Acute Assessment and Plan: Elevated LFTs likely related to liver disease from alcohol use, hepatic steatosis seen on abdominal ultrasound -GI following -continue to monitor (5) Thrombocytopenia, unspecified: Code(s): D69.6 - Thrombocytopenia, unspecified Status: Acute Assessment and Plan: Thrombocytopenia likely related to alcohol abuse -no acute bleeding noted at this time -will continue to monitor -transfusion not indicated at this time -continue thiamine and folic acid (6) Increased ammonia level: Code(s): R79.89 - Other specified abnormal findings of blood chemistry Status: Acute Assessment and Plan: Increased ammonia level likely related to hypovolemia, liver dysfunction from alcohol use -patient on lactulose, repeat ammonia levels are normal Additional Plan DVT prophylaxis: SCDs. No chemoprophylaxis due to thrombocytopenia Stress ulcer prophylaxis: DC Protonix Nutrition: Regular diet Up in chair, incentive spirometry, PT OT consult Transfer out of ICU today Code status: Full code Subjective Date/time seen: 12/30/21 09:12 Patient states he med feels much better this morning. Denies any complaints. He is eager to go home. He ate his dinner last night. This morning he is alert oriented x3 Patient denies fever, chest pain, shortness of breath, cough, nausea vomiting, abdominal pain,, diarrhea, headache or constipation. All other systems were reviewed and were negative Nurse did report a patient had some episodes of hallucinations last night Precedex has been weaned down to 0.1 Interval history: HPI:This is a 41-year-old male with alcohol withdrawal Review of Systems Review of Systems: All systems reviewed & are unremarkable except as noted in HPI and below Exam Narrative: General: Well-built male in no acute distress HEENT: Sclera is icteric, pupils equal and reactive, no nystagmus Neck: Supple, no lymphadenopathy Respiratory: Clear to auscultation bilaterally, no wheezes Cardiac: S1-S2 is normal, regular rate and rhythm Abdomen: Soft, nontender, nondistended, normoactive bowel sounds Extremities: No edema Neuro: Alert calm awake oriented x3, mild tremors,PERRL Skin: warm and dry Psych: Normal speech and affect Objective Data Vital Signs Vital Signs: Vital Signs - 24 hr 12/29/21 09:37 12/29/21 09:46 12/29/21 09:56 Temperature Pulse Rate 118 H 113 H 108 H Pulse Rat
[2021-12-30] MEDS: THIAMINE HCL 100 MG TABLET PO (09:49)
[2021-12-30] MEDS: POTASSIUM CHLORIDE 20 MEQ TABLET 40 MEQ PO (09:49)
[2021-12-30] MEDS: MAGNESIUM SULF 2 GM/WATER 50ML 2 GM/50 ML BAG IVPB (09:49)
[2021-12-30] MEDS: FOLIC ACID 1 MG TABLET PO (09:49)
[2021-12-30] MEDS: LACTULOSE 20 GM/30 ML UDC PO (10:07)
[2021-12-30] MEDS: LORazepam (*CRX) 1 MG TABLET PO (10:11)
[2021-12-30] MEDS: LORazepam INJ (*CRX) 2 MG/ML VIAL 1 MG IV PUSH (12:16)
[2021-12-30] MEDS: ACETAMINOPHEN 325 MG TABLET 650 MG PO (12:39)
--- NOTE | 2021-12-30 13:15 | PC.NURSE ---
This patient, Martin Early, was transferred to [facility] on 12/30/21 at 1300. Personal belongings sent with patient. Report given to Emily TAYLOR. Appropriate documentation sent with patient.
--- NOTE | 2021-12-30 13:25 | WPDGIPROGNO ---
Progress Note: A&P Assessment and Plan (1) Alcohol withdrawal: Code(s): F10.239 - Alcohol dependence with withdrawal, unspecified Status: Acute Assessment and Plan: 12/28 he was alert today and shows no signs of tremulousness. I think he is going to be stable. He firmly states that he is going to give up alcohol completely. I 12/29. He became confused last night and had to be transferred back to intensive care. He is now sedated perCIWA protocol and is sleeping calmly. 12/30 More oriented today. Moved to regular floor (2) Alcoholic dependence syndrome: Code(s): F10.20 - Alcohol dependence, uncomplicated Status: Acute Assessment and Plan: he states that he is going to give up alcohol completely. I did tell him that it is usually not possible to is simply cut back on alcohol when 1 has had a problem with dependency. He acknowledges that he needs to stop completely (3) Increased ammonia level: Code(s): R79.89 - Other specified abnormal findings of blood chemistry Status: Acute Assessment and Plan: Ammonia level has come down to 15. I do not think that he will need to be maintained on lactulose after discharge so long as he remains sober he will however need to follow-up with either myself or liver specialist (4) Altered mental status: Qualifiers: Altered mental status type: unspecified Qualified Code(s): R41.82 - Altered mental status, unspecified Code(s): R41.82 - Altered mental status, unspecified Status: Acute Assessment and Plan: this was likely due to alcohol intoxication but the elevated blood ammonia may have been contributing factor as well. He is lucid now and probably able to go home Subjective Date/time seen: 12/30/21 13:25 more alert. Appears to have past the worst of his alcohol withdrawal syndrome. Review of Systems Review of Systems: All systems reviewed & are unremarkable except as noted in HPI and below Exam Narrative: General: Well-built male in no acute distress HEENT: Sclera is icteric, pupils equal and reactive, no nystagmus Neck: Supple, no lymphadenopathy Respiratory: Clear to auscultation bilaterally, no wheezes Cardiac: S1-S2 is normal, regular rate and rhythm Abdomen: Soft, nontender, nondistended, normoactive bowel sounds Extremities: No edema Neuro: Alert calm awake oriented x3, mild tremors,PERRL Skin: warm and dry Psych: Normal speech and affect Objective Data Vital Signs Vital Signs: Vital Signs - 24 hr 12/29/21 13:29 12/29/21 14:00 12/29/21 14:00 Temperature 36.6 C Pulse Rate 69 69 69 Pulse Rate [Left Radial Palpation] Respiratory Rate 13 13 Blood Pressure 124/96 H Pulse Oximetry 94 Oxygen Delivery 12/29/21 15:50 12/29/21 16:00 12/29/21 16:00 Temperature 36.1 C L Pulse Rate 60 63 63 Pulse Rate [Left Radial Palpation] Respiratory Rate 14 13 Blood Pressure 145/95 H Pulse Oximetry 98 Oxygen Delivery 12/29/21 16:00 12/29/21 17:00 12/29/21 18:00 Temperature Pulse Rate 63 70 65 Pulse Rate [Left Radial Palpation] Respiratory Rate 13 13 Blood Pressure Pulse Oximetry 98 Oxygen Delivery Room Air 12/29/21 18:00 12/29/21 19:50 12/29/21 19:50 Temperature 36.3 C L Pulse Rate 65 66 Pulse Rate [Left Radial Palpation] 66 Respiratory Rate 14 20 Blood Pressure 127/91 H 146/97 H Pulse Oximetry 97 97 Oxygen Delivery Room Air 12/29/21 19:50 12/29/21 20:41 12/29/21 20:00 Temperature 36.8 C Pulse Rate 66 81 70 Pulse Rate [Left Radial Palpation] Respiratory Rate 20 14 Blood Pressure 146/97 H Pulse Oximetry 97 Oxygen Delivery 12/29/21 22:16 12/29/21 22:43 12/29/21 22:00 Temperature Pulse Rate 72 60 74 Pulse Rate [Left Radial Palpation] Respiratory Rate 18 15 Blood Pressure Pulse Oximetry Oxygen Delivery 12/29/21 22:00 12/29/21 23:59 12/30/21 00:48 Temperature 37.5 C P
--- NOTE | 2021-12-30 13:54 | PM.IMPN ---
Progress Note: A&P Assessment and Plan (1) Alcohol withdrawal: Code(s): F10.239 - Alcohol dependence with withdrawal, unspecified Status: Acute Assessment and Plan: Patient presented with alcohol intoxication with alcohol levels of 494 on 12/27/2021 -patient on the floor was getting agitated, tremulous, hallucinations -CIWA score was elevated, despite giving multiple doses of Ativan patient was agitated and was trying to get out of bed -patient was transferred to the ICU on 12/29, started on Precedex infusion -was also given IV fluids -symptoms are significantly improved and Precedex has been weaned off -continue scheduled Librium -continue Ativan IV and p.o. p.r.n.. Dosing adjusted based on CIWA score -change IV thiamine and IV folic acid to p.o. (2) Alcoholic dependence syndrome: Code(s): F10.20 - Alcohol dependence, uncomplicated Status: Acute Assessment and Plan: Patient with alcohol dependence, working with care coordination regarding options of placement in a rehab (3) Altered mental status: Qualifiers: Altered mental status type: unspecified Qualified Code(s): R41.82 - Altered mental status, unspecified Code(s): R41.82 - Altered mental status, unspecified Status: Acute Assessment and Plan: Altered mental status most likely related to alcohol intoxication on admission Resolved (4) Elevated LFTs: Code(s): R79.89 - Other specified abnormal findings of blood chemistry Status: Acute Assessment and Plan: Elevated LFTs likely related to liver disease from alcohol use, hepatic steatosis seen on abdominal ultrasound -GI following -continue to monitor (5) Thrombocytopenia, unspecified: Code(s): D69.6 - Thrombocytopenia, unspecified Status: Acute Assessment and Plan: Thrombocytopenia likely related to alcohol abuse -no acute bleeding noted at this time -will continue to monitor -transfusion not indicated at this time -continue thiamine and folic acid (6) Increased ammonia level: Code(s): R79.89 - Other specified abnormal findings of blood chemistry Status: Acute Assessment and Plan: Increased ammonia level likely related to hypovolemia, liver dysfunction from alcohol use -patient on lactulose, repeat ammonia levels are normal Additional Plan DVT prophylaxis: SCDs. No chemoprophylaxis due to thrombocytopenia Subjective Date/time seen: 12/30/21 13:54 Interval history: HPI:This is a 41-year-old male the presents to the emergency room for evaluation of worsening confusion, unintentional weight loss, poor appetite, recurrent fall. Patient is brought to the emergency room by his he is able to give a history however patient is confused he is oriented to person and place however not to situation or time. When asked what time it was patient stated was morning. Upon further investigation was found the patient had an alcohol level in the 400s, ammonia level of 65, sodium 150, magnesium 1.4, MCV 112. Patient denies any discomfort at the time of my visit. is eating history taking. And she is sitting at bedside. Patient denies any fevers, rigors, chills, although states that he is feeling cold, no cough, no sputum production, no shortness of breath, no chest pain, patient has not been able to sleep at nighttime. Patient has been admitted for further evaluation management and treatment. 12/27/2021 improvement a marion today. at bedside. Has been drinking for many years. About 1 pt of whiskey every week. Feels shaky. No DUIs in the past. 12/28/2021 has been feeling shaky and features of withdrawal. On Librium and Ativan as ordered per CIWA protocol. Denies any abdominal pain nausea vomiting 12/29/2021 overnight he got agitated and confused and has sedated. Received higher dose of Ativan and Haldol. CIWA score is as high as 32. remains afebrile. Recognizes his states he is in some ki
[2021-12-31 04:52] VITALS: BP 138/90; PULSE 86; RESP 18; TEMP 36.6; O2SAT 97
[2021-12-31] MEDS: chlordiazePOXIDE (*CRX) 25 MG CAPSULE 50 MG PO ×2 (05:03→14:05)
[2021-12-31 06:14] LABS: Basophils Percent Auto 0.6 % (0.2-1.2); Eosinophils Absolute Auto 0.1 K/mm3 (0-0.3); Eosinophils Percent Auto 1.6 % (0-4.4); Hematocrit 37.3 % (42.0-52.0); Hemoglobin 12.7 g/dL (14.0-18.0); Immature Granulocyte Absolute 0.02 K/mm3 (0.00-0.031); Immature Granulocyte Percent A 0.4 % (0-0.5); Immature Platelet Fraction Pct 8.6 % (0.9-11.2); Lymphocytes Absolute Auto 0.82 K/mm3 (0.9-3.2); Lymphocytes Percent Auto 16.1 % (18.3-44.2); Mean Corpuscular Hemoglobin 35.7 pg (26-34); Mean Corpuscular Volume 104.8 fl (80-100); Mean Platelet Volume 10.5 fl (7.4-10.4); Monocytes Absolute Auto 0.8 K/mm3 (0.1-0.6); Monocytes Percent Auto 14.9 % (2.6-8.5); Neutrophils Absolute Auto 3.4 K/mm3 (1.3-6.7); Neutrophils Percent Auto 66.4 % (45.5-73.1); Platelet Count Result 80 k/mm3 (150-375); Red Blood Count 3.56 M/mm3 (4.6-6.20); Red Cell Distribution Width 12.1 % (11.5-14.5); White Blood Count 5.1 K/mm3 (4.5-10.0)
[2021-12-31 06:21] LABS: Alanine Aminotransferase 73 U/L (6-50); Albumin Level 3.8 g/dL (3.5-5.1); Alkaline Phosphatase 183 U/L (38-126); Anion Gap 6 mmol/L (8-16); Aspartate Amino Transferase 106 U/L (17-59); Bilirubin,Total 2.4 mg/dL (0.2-1.3); Blood Urea Nitrogen 8 mg/dL (9-20); Calcium 8.8 mg/dL (8.4-10.2); Carbon Dioxide 27 mmol/L (22-30); Chloride 104 mmol/L (98-107); Estimated CRCL calculation 160 ml/min; Estimated Glomerular Filt Rate > 60; Glucose 92 mg/dL (65-110); Magnesium 1.5 mg/dL (1.6-2.3); Potassium 3.3 mmol/L (3.4-5.0); Sodium 137 mmol/L (137-145)
--- NOTE | 2021-12-31 07:17 | WPDGIPROGNO ---
Progress Note: A&P Assessment and Plan (1) Alcoholic dependence syndrome: Code(s): F10.20 - Alcohol dependence, uncomplicated Status: Acute Assessment and Plan: Patient with alcohol dependence, working with care coordination regarding options of placement in a rehab Denied had a discussion about how important is to help prevent him from progressing to cirrhosis. (2) Elevated LFTs: Code(s): R79.89 - Other specified abnormal findings of blood chemistry Status: Acute Assessment and Plan: Elevated LFTs likely related to liver disease from alcohol use, hepatic steatosis seen on abdominal ultrasound -GI following -continue to monitor 12/31 I told that I need to see me in the office in a few weeks because we need to continue to monitor his LFTs. Persistent elevation would suggest that he is developing cirrhosis. (3) Thrombocytopenia, unspecified: Code(s): D69.6 - Thrombocytopenia, unspecified Status: Acute Assessment and Plan: Thrombocytopenia likely related to alcohol abuse -no acute bleeding noted at this time -will continue to monitor -transfusion not indicated at this time -continue thiamine and folic acid (4) Increased ammonia level: Code(s): R79.89 - Other specified abnormal findings of blood chemistry Status: Acute Assessment and Plan: Increased ammonia level likely related to hypovolemia, liver dysfunction from alcohol use -patient on lactulose, repeat ammonia levels are normal Additional Plan DVT prophylaxis: SCDs. No chemoprophylaxis due to thrombocytopenia Subjective Date/time seen: 12/31/21 07:17 He feels good today. He is lucid. He has no complaints of nausea vomiting or abdominal pain. Review of Systems Review of Systems: All systems reviewed & are unremarkable except as noted in HPI and below Exam Const: General: alert Orientation/consciousness: patient oriented x3 Resp: Auscultation: clear to auscultation bilaterally Cardio: Rhythm: regular rhythm GI: GI Palp: Yes Soft to palpation, No Tenderness to palpation present (GI) and Yes No hepatosplenomegaly present Neuro: General: patient oriented x3 Motor exam (neuro): No Asterixis during motor activity present Objective Data Vital Signs Vital Signs: Vital Signs - 24 hr 12/30/21 08:00 12/30/21 08:25 12/30/21 10:00 Temperature 36.7 C Pulse Rate 73 68 131 H Respiratory Rate 14 17 15 Blood Pressure 126/89 125/81 Pulse Oximetry 98 100 Oxygen Delivery 12/30/21 10:51 12/30/21 10:32 12/30/21 08:00 Temperature Pulse Rate 76 Respiratory Rate Blood Pressure Pulse Oximetry Oxygen Delivery Room Air Room Air 12/30/21 08:00 12/30/21 12:39 12/30/21 13:06 Temperature 38.4 C H 36.8 C Pulse Rate 119 H Respiratory Rate 20 Blood Pressure 116/75 Pulse Oximetry 99 Oxygen Delivery Room Air 12/30/21 20:36 12/31/21 04:52 Temperature 36.6 C 36.6 C Pulse Rate 108 H 86 Respiratory Rate 16 18 Blood Pressure 135/88 138/90 Pulse Oximetry 100 97 Oxygen Delivery Intake/Output Intake/Output: Intake & Output 12/28/21 12/29/21 12/30/21 12/31/21 23:59 23:59 23:59 23:59 Intake Total 423 172 5036 300 Output Total 625 2000 2875 950 Balance 345 -1600 1712 -650 Meds/Results Medications: Active Medications Generic Name Dose Route Start Last Admin Trade Name Freq PRN Reason Stop Dose Admin Chlordiazepoxide HCl 50 mg 12/29/21 12:00 12/31/21 05:03 Chlordiazepoxide (*Crx) 25 Mg Capsule PO 50 mg Q6HR MINI Administration Folic Acid 1 mg 12/30/21 09:00 12/30/21 09:49 Folic Acid 1 Mg Tablet PO 1 mg DAILY MINI Administration Lactulose 20 gm 12/27/21 09:00 12/30/21 10:07 Lactulose 20 Gm/30 Ml Udc PO 20 gm QAM MINI Administration Lorazepam 2 mg 12/30/21 07:55 Lorazepam Inj (*Crx) 2 Mg/Ml Vial IV PUSH Q2H PRN CIWA > 15 Lorazepam 1 mg 12/30/21 07:55 12/30/21 10:11 Loraze
[2021-12-31] MEDS: LACTULOSE 20 GM/30 ML UDC PO (08:46)
[2021-12-31] MEDS: FOLIC ACID 1 MG TABLET PO (08:46)
[2021-12-31] MEDS: THIAMINE HCL 100 MG TABLET PO (08:46)
--- NOTE | 2021-12-31 12:17 | PCOTNOTE ---
The OT treatment was unable to be completed this date. Will continue OT per plan of care.
[2021-12-31] MEDS: POTASSIUM CHLORIDE 20 MEQ TABLET 40 MEQ PO (12:30)
[2021-12-31 14:10] VITALS: BP 136/97; PULSE 99; RESP 18; TEMP 36.7; O2SAT 100
--- NOTE | 2021-12-31 15:27 | PM.DS ---
DS: Admitting Diagnosis Discharge Date 12/31/2021 Admitting Diagnosis Alcoholic hepatitis, alcohol withdrawal DS: Discharge Diagnosis Discharge Diagnosis (1) Alcohol withdrawal: Code(s): F10.239 - Alcohol dependence with withdrawal, unspecified Status: Acute Assessment and Plan: Patient presented with alcohol intoxication with alcohol levels of 494 on 12/27/2021 -patient on the floor was getting agitated, tremulous, hallucinations -CIWA score was elevated, despite giving multiple doses of Ativan patient was agitated and was trying to get out of bed -patient was transferred to the ICU on 12/29, started on Precedex infusion -was also given IV fluids -symptoms are significantly improved and Precedex has been weaned off -continue scheduled Librium -continue Ativan IV and p.o. p.r.n..? Dosing adjusted based on CIWA score -change IV thiamine and IV folic acid to p.o. -12/31/21 patient with improved CIWA score as low as zero and feeling much better ready to go home. Discussed patient with care coordination who has provided the patient and his with alcohol rehabilitation resources. Follow up appointment with PCP scheduled for 01/08/2022 at 0930 because PCP office is always closed on and will be closed on Wednesday for the holiday. -Will discharge with librium at current dose and will allow PCP to taper (2) Elevated LFTs: Code(s): R79.89 - Other specified abnormal findings of blood chemistry Status: Acute Assessment and Plan: AST, ALT, Total bilirubin all improved today and downtrending. Alkaline phosphatase increased. Appreciate recommendations from GI. Patient referral to GI placed in follow up for 2 weeks after discharge. (3) Alcoholic dependence syndrome: Code(s): F10.20 - Alcohol dependence, uncomplicated Status: Acute Assessment and Plan: Treatment for alcohol withdrawal as noted above. Patient prescribed librium for discharge to prevent withdrawal. (4) Megaloblastic anemia due to alcoholism: Code(s): D53.1 - Other megaloblastic anemias, not elsewhere classified Status: Acute Assessment and Plan: Anemia stable. Thiamine and folic acid started. (5) Hypernatremia: Code(s): E87.0 - Hyperosmolality and hypernatremia Status: Acute Assessment and Plan: Resolved. (6) Alcohol dependence with acute intoxication, continuous: Code(s): F10.229 - Alcohol dependence with intoxication, unspecified Status: Acute Assessment and Plan: Intoxication resolved. Dependence treated with librium to prevent withdrawal. (7) Increased ammonia level: Code(s): R79.89 - Other specified abnormal findings of blood chemistry Status: Acute Assessment and Plan: Resolved. (8) Altered mental status: Qualifiers: Altered mental status type: unspecified Qualified Code(s): R41.82 - Altered mental status, unspecified Code(s): R41.82 - Altered mental status, unspecified Status: Acute Assessment and Plan: Resolved. (9) Acute alcoholic hepatitis: Code(s): K70.10 - Alcoholic hepatitis without ascites Status: Acute Assessment and Plan: LFTs downtrending. Will have outpatient follow up with Gastroenterology. (10) Thrombocytopenia, unspecified: Code(s): D69.6 - Thrombocytopenia, unspecified Status: Acute Assessment and Plan: Improved. (11) Intracranial arachnoid cyst: Code(s): G93.0 - Cerebral cysts Status: Acute Assessment and Plan: Noted on admission CT head for altered mental status. Follow up outpatient with primary care physician. (12) Hypomagnesemia: Code(s): E83.42 - Hypomagnesemia Status: Acute Assessment and Plan: Magnesium sulfate 2g IV today. (13) Weight loss, non-intentional: Code(s): R63.4 - Abnormal weight loss Status: Acute Assessment and Plan: Will need
[2021-12-31] MEDS: MAGNESIUM SULF 2 GM/WATER 50ML 2 GM/50 ML BAG IVPB (15:54)
== END 2021-12-31 17:30 | disposition home or self-care (01) | DRG 897 ==
LOC: ANHED 12-27 00:47 → ANH3MED 12-27 01:47 → ANHICU 12-29 09:30 → ANH3MED 12-31 15:27 → ANHICU 01-01 10:53
PROVIDERS: Internal Medicine; Physician Assistant; Admitting Provider Internal Medicine; Emergency Provider Emergency Medicine; PCP Emergency Medicine; Visit Provider Family Medicine
DX: F10.239 Alcohol dependence with withdrawal, unspecified (principal); E87.0 Hyperosmolality and hypernatremia; F10.229 Alcohol dependence with intoxication, unspecified; Y90.8 Blood alcohol level of 240 mg/100 ml or more; K70.40 Alcoholic hepatic failure without coma; K70.10 Alcoholic hepatitis without ascites; K76.0 Fatty (change of) liver, not elsewhere classified; D53.1 Other megaloblastic anemias, not elsewhere classified; D69.59 Other secondary thrombocytopenia; G93.0 Cerebral cysts; E83.42 Hypomagnesemia; R63.4 Abnormal weight loss; S50.12XA Contusion of left forearm, initial encounter; W19.XXXA Unspecified fall, initial encounter
CPT/HCPCS: 36415; 70450; 71045; 72125; 76705; 80048; 80053; 80074; 80076; 80307; 81001; 81003; 82140; 83605; 83690; 83735; 84100; 85025; 85055; 85610; 85730; 86140; 86703; 87040; 96360; 96361; 96365; 96366; 96368; 96372; 96374; 96375; 96376; 97161; 97165; 97530; 99285; A9270; C9113; G0378; G0432; J1630; J2060; J3411; J3475; J3480; J7030; J7040; J7120

== ENCOUNTER 2025-05-30 08:35 | Outpatient (CLI) | payer OTHER, SELFPAY ==
--- NOTE | ~2025-05-30 | US_ITS ---
US art doppler w press LE BI INDICATION: Peripheral vascular disease TECHNIQUE: Segmental pressures and plethysmographic and Doppler waveforms of the brachial and lower extremity arteries were obtained. COMPARISON: None. FINDINGS: Right and left brachial artery pressures of 132 mm Hg and 125 mm Hg, respectively, are concordant (normal difference <= 30 mmHg). There is biphasic flow in the lower extremity arteries bilaterally. The right ankle-brachial index (GALLITO) is 1.23 (normal >= 0.9-1.0). The right great toe-brachial index (TBI) is 0.95 (normal >= 0.60). The left GALLITO is 1.22. The left TBI is 0.73. IMPRESSION: 1. Normal bilateral ankle and toe brachial indices. Reviewed, dictated and finalized at location O.
== END 2025-05-30 08:36 | disposition home or self-care (01) ==
PROVIDERS: PCP Emergency Medicine; Visit Provider Emergency Medicine
DX: I73.9 Peripheral vascular disease, unspecified (principal)
CPT/HCPCS: 93923